=== PATIENT | male | born 1990 | race Caucasian/White ===

== ENCOUNTER 2018-11-25 21:20 | Emergency (ER) | payer OTHER ==
[~2018-11-25] VITALS: Ht 177.8 cm; Wt 81.6 kg
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
--- NOTE | 2018-11-25 21:46 | NUR ---
DR. BLACKMON IN PATIENTS ROOM AND EVALUATING.
--- NOTE | 2018-11-25 22:05 | NUR ---
PATIENT TAKEN DOWN FOR X-RAY
[2018-11-25] MEDS: IBUPROFEN 800 MG TABLET PO ONE (22:06)
[2018-11-25] MEDS ORDERED: IBUPROFEN 800 MG TABLET ONE (22:07)
--- NOTE | 2018-11-25 22:18 | NUR ---
PATIENT RETURNED BACK FROM X-RAY.
--- NOTE | 2018-11-25 23:24 | NUR ---
Patient discharged to home in stable conditon. Written and verbal after care instructions given. Patient verbalizes understanding of instructions. all belongings with the patient. Patient has good understanding of health and verbalizes understanding of discharge instructions. Perscription given to patient along with exit care package. Patient in stable condition and escorted with friend.
[2018-11-25 23:29] VITALS: BP 134/65
== END 2018-11-25 23:29 | disposition home or self-care (01) ==
LOC: ER 21:20
DX: S13.4XXA Sprain of ligaments of cervical spine, initial encounter (principal); S39.91XA Unspecified injury of abdomen, initial encounter; V49.9XXA Car occupant (driver) (passenger) injured in unspecified traffic accident, initial encounter; Y93.89 Activity, other specified; Y92.89 Other specified places as the place of occurrence of the external cause; Y99.8 Other external cause status
CPT/HCPCS: A4663